=== PATIENT | female | born 1930 | race Two or more races ===

== ENCOUNTER 2019-05-18 12:05 | Emergency (ER) | payer MEDICARE ==
[~2019-05-18] VITALS: Ht 162.6 cm; Wt 62.1 kg
[~2019-05-18 12:05] MED LIST: ACET-868 PO; ALEN70TA6 PO; ALLA266C2 TP; AMLO2.5T4 PO; ATEN25TA PO; ATOR10TA PO; CHOL100044 PO; DONE10TA44 PO; FAMO-131 PO; FOLI1TAB16 PO; HYDR-4384 PO; LOSA50TA39 PO; MAG30ORA PO; MAGN400O6 PO; MAGN400T26 PO; ONDA4TAB5 PO; OXYB5TAB16 PO; SPIR25TA6 PO
--- NOTE | 2019-05-18 12:11 | NUR ---
[facility] . AWAITING EVALUATION BY ER PROVIDER.
--- NOTE | 2019-05-18 12:17 | NUR ---
LABS DRAWN SEN TO LAB XRAY DONE
[2019-05-18 12:24] LABS: BASOPHILS % (AUTO) 0.3 % (0.0-2.0); EOSINOPHILS % (AUTO) 1.9 % (0.0-6.0); HEMATOCRIT 39 % (33-45); HEMOGLOBIN 13.1 g/dL (11.5-14.8); LYMPHOCYTES # (AUTO) 1.8 /CMM (0.8-4.8); LYMPHOCYTES % (AUTO) 27.7 % (20.0-44.0); MEAN CORPUSCULAR HGB CONC 33 g/dl (31.0-36.0); MEAN CORPUSCULAR VOLUME 96 fL (82-100); MONOCYTES # (AUTO) 0.5 /CMM (0.1-1.30); MONOCYTES % (AUTO) 8.1 % (2.0-12.0); PLATELET COUNT (AUTO) 314 /CMM (150-450); WHITE BLOOD COUNT (AUTO) 6.4 K/uL (4.3-11.0)
[2019-05-18 12:32] LABS: CALCIUM, SERUM 8.9 mg/dL (8.5-10.1); CREATININE 0.6 mg/dL (0.6-1.3); POTASSIUM 4.7 mmol/L (3.5-5.1)
--- NOTE | 2019-05-18 12:45 | NUR ---
CORA KHAN TO [facility] ETA [id number] TRIP#[id number]
--- NOTE | 2019-05-18 13:30 | NUR ---
pt ate lunch tolerated well fell asleep
--- NOTE | 2019-05-18 15:30 | NUR ---
pt stable for d/c ems arrived [facility]
[2019-05-18 15:32] VITALS: BP 124/70
== END 2019-05-18 15:33 ==
LOC: ER 12:09
DX: Z04.3 Encounter for examination and observation following other accident (principal); G62.9 Polyneuropathy, unspecified; I10 Essential (primary) hypertension; R07.89 Other chest pain; F03.90 Unspecified dementia, unspecified severity, without behavioral disturbance, psychotic disturbance, mood disturbance, and anxiety; Z98.890 Other specified postprocedural states; Z88.8 Allergy status to other drugs, medicaments and biological substances; Z79.899 Other long term (current) drug therapy; W19.XXXA Unspecified fall, initial encounter; Y93.89 Activity, other specified; Y92.89 Other specified places as the place of occurrence of the external cause; Y99.8 Other external cause status
CPT/HCPCS: 36415; 70450-TC; 71045-TC; 80048-TC; 85025-TC